=== PATIENT | male | born 1945 | race Hispanic/Latino ===

== ENCOUNTER 2016-07-11 14:11 | Inpatient (IN) | payer MEDICARE ==
[2016-07-11 15:43] LABS: BASO # 0.1 K/uL (0.0-0.2); BASO % 0.7 % (0.0-2.0); EOS # 0.5 K/uL (0.0-0.7); EOS % 6.4 % (0.0-4.0); HEMATOCRIT 37.8 % (35.0-51.0); LYMPH # 0.8 K/uL (1.0-4.3); LYMPH % 9.4 % (20.0-40.0); MEAN CELL VOLUME 85.4 fL (80.0-94.0); MEAN CORPUSCULAR HEMOGLOBIN 27.2 pg (27.0-31.0); MEAN CORPUSCULAR HGB CONC 31.9 g/dL (33.0-37.0); MEAN PLATELET VOLUME 6.3 fL (7.2-11.7); MONO # 0.7 K/uL (0.0-0.8); PLATELET COUNT 333 K/uL (130-400); RED CELL DISTRIBUTION WIDTH 15.2 % (11.5-14.5); WHITE BLOOD COUNT 8.2 K/uL (4.8-10.8)
[2016-07-11 15:53] LABS: CHLORIDE 98 mmol/L (98-107); SODIUM 137 mmol/L (132-148)
[2016-07-11 15:54] LABS: POTASSIUM 3.8 mmol/L (3.6-5.2)
[2016-07-11 15:55] LABS: GFR AFRICAN-AMERICAN > 60
[2016-07-11 15:56] LABS: ALB/GLOB RATIO 1.4 (1.0-2.1); ALKALINE PHOSPHATASE 71 U/L (38-126); ALT/SGPT 29 U/L (21-72); AST/SGOT 28 U/L (17-59); BILIRUBIN,TOTAL < 0.1 mg/dL (0.2-1.3); BLOOD UREA NITROGEN 10 mg/dL (9-20); CALCIUM 8.6 mg/dl (8.6-10.4); CARBON DIOXIDE 27 mmol/L (22-30); GLUCOSE,RANDOM 81 mg/dL (75-110); TOTAL PROTEIN 7.3 g/dL (6.3-8.3)
[2016-07-11 15:57] LABS: ALCOHOL SERUM < 10 mg/dl (0-10)
[2016-07-11 16:13] LABS: EOSINOPHIL 8 % (0-4); NEUTROPHIL 76 % (50-75); TOTAL CELLS COUNTED 100
--- NOTE | 2016-07-11 16:15 | C.PDOC ---
History Of Present Illness 71 year old patient, with a past medical history of seizures, presents to the ED requesting detox. Patient is pre-screened. He admits his last drink was at 1: 00 am. Patient states he's been feeling anxious. He denies shortness of breath, chest pain, nausea, vomiting, or dizziness. Time Seen by Provider: 07/11/16 14:57 Chief Complaint (Nursing): Substance Abuse History Per: Patient History/Exam Limitations: no limitations Onset/Duration Of Symptoms: Other Current Symptoms Are (Timing): Still Present Suicide/Self Injury Attempted (Context): None Modifying Factor(s): None Severity: None Pain Scale Rating Of: 0 Associated Symptoms: Anxiety Recent travel outside of the [place]: No Additional History Per: Patient Past Medical History Reviewed: Historical Data, Nursing Documentation, Vital Signs Vital Signs: Last Vital Signs Temp 98.3 F 07/15/16 17:04 Pulse 70 07/15/16 17:04 Resp 18 07/15/16 17:04 BP 100/63 07/15/16 17:04 Pulse Ox 100 07/15/16 17:04 - Medical History PMH: Pneumothorax, Seizures Surgical History: Pacemaker - [facility] Procedures DETOXIFICATION SERVICES FOR SUBSTANCE ABUSE TREATMENT (07/11/16) GROUP PSYCHOTHERAPY (07/11/16) INDIV PSYCHOTHERAPY FOR SUBSTANCE ABUSE TREATMENT, SUPPORT (07/11/16) INDIVIDUAL PSYCHOTHERAPY, SUPPORTIVE (07/11/16) MEDICATION MANAGEMENT (07/11/16) Family History: States: Unknown Family Hx - Social History Hx Alcohol Use: Yes Hx Substance Use: No - Immunization History Hx Tetanus Toxoid Vaccination: No Hx Influenza Vaccination: Yes Hx Pneumococcal Vaccination: Yes Review Of Systems Except As Marked, All Systems Reviewed And Found Negative. Cardiovascular: Negative for: Chest Pain Respiratory: Negative for: Shortness of Breath Gastrointestinal: Negative for: Nausea, Vomiting Neurological: Negative for: Dizziness Psych: Positive for: Anxiety Physical Exam - Physical Exam Appears: Non-toxic, No Acute Distress Skin: Warm, Dry Head: Atraumatic, Normacephalic Eye(s): bilateral: Normal Inspection, EOMI Oral Mucosa: Moist Neck: Normal ROM, Supple Chest: Symmetrical Cardiovascular: Rhythm Regular Respiratory: Normal Breath Sounds, No Rales, No Rhonchi, No Wheezing Gastrointestinal/Abdominal: Soft, No Tenderness Back: Normal Inspection, No CVA Tenderness Extremity: Normal ROM Neurological/Psych: Oriented x3, Normal Speech Gait: Steady ED Course And Treatment - Laboratory Results Result Diagrams: 07/11/16 15:39 07/11/16 15:39 Lab Interpretation: No Acute Changes O2 Sat by Pulse Oximetry: 98 (room air) Pulse Ox Interpretation: Normal Medical Decision Making Medical Decision Making: Impression: 71 y/o male is pre-screened for detox Plan: * Labs * Librium * Crisis evaluation * Reassess and disposition Progress: Labs ordered and reviewed. In my clinical judgment patient is medically cleared and stable for psychiatric admission. bake room worker contacted for evaluation. 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 - Scribe Statement The provider has reviewed the documentation as recorded by the Scribe Bianca Bishop All medical record entries made by the Scribe were at my direction and personally dictated by me. I have reviewed the chart and agree that the record accurately reflects my personal performance of the history, physical exam, medical decision making, and the department course for this patient. I have also personally directed, reviewed, and agree with the discharge instructions and disposition. Decision To Admit - Pt Status Changed To: Hospital Disposition Of: Inpatient - Admit Certification Admit to Inpatient:: After my assessment, the patient will require hospitalization for at least two midnights. This is because of the severity of symptoms shown, intensity of services needed, and/or the medical risk in this patient being treated as an outpatient. - InPatient: Physician Admission Certification: I certify that this patient requires 2 or more midnights of care for the following reason:: patient is to be admitted to detox for alcohol use disorder severe under Dr Monteiro service - . Bed Request Type: Detox Admitting Physician: Nam Monteiro Patient Diagnosis: Alcohol use disorder
[2016-07-11 16:16] LABS: LARGE PLATELETS PRESENT
[2016-07-11 16:32] LABS: RBC URINE 2 /hpf (0-3); URINE BACTERIA RARE (<OCC); URINE BILIRUBIN NEGATIVE (NEGATIVE); URINE BLOOD NEGATIVE (NEGATIVE); URINE COLOR Yellow (YELLOW); URINE GLUCOSE (UA) 1+ mg/dL (Normal); URINE KETONE NEGATIVE (NEGATIVE); URINE LEUKOCYTE ESTERASE NEG Leu/uL (Negative); URINE PROTEIN NEGATIVE (NEGATIVE); URINE UROBILINOGEN NORMAL mg/dL (0.2-1.0); WBC URINE 1 /hpf (0-5)
--- NOTE | 2016-07-12 08:51 | PCM.PSYCH ---
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 Patient reports of long history of drinking. As per the patient he started drinking in 20s with a few beers but with the passage of time he started consuming increasing amount of hard liquor. As per the patient he drinks almost 10-15 12 oz beers on a daily basis. Yesterday almost 12 years and started experiencing withdrawal symptoms so came to ED to get help in detox. Patient reports of irritable mood but denies any feelings of hopelessness or helplessness, denies any suicidal ideation or homicidal ideation. Patient reports withdrawal symptoms including headache, anxiety, shakes and abdominal pain. Patient reports irritable mood but denies any feelings of hopelessness or helplessness, denies any suicidal ideation or homicidal ideation. Denies any psychotic or manic symptoms. Denies any other substance abuse. Longest period of sobriety: 12 year from [id number]. Past medical history History of seizures, cardiomyopathy status post pacemaker Past psychiatric history Patient denies any past history of inpatient psychiatric hospitalizations, but reports history of follow-up with an unknown psychiatrist, for anxiety and depression. Patient denies any history of suicidal ideation or attempt or any history of homicidal ideation or attempt in the past. Patient denies any history of auditory or visual hallucinations or any psychotic symptoms in the past Current Medications: Active Medications Generic Name Dose Route Start Last Admin Trade Name Freq PRN Reason Stop Dose Admin Chlordiazepoxide 25 mg 07/12/16 00:00 07/12/16 06:46 Librium PO 07/15/16 23:59 25 mg Q6 JO ANN Administration Taper Chlordiazepoxide 25 mg 07/11/16 19:51 Librium PO Q4H PRN Alcohol Withdrawal Digoxin 0.125 mg 07/12/16 10:00 Lanoxin PO 1000 JO ANN Docusate Sodium 100 mg 07/12/16 10:00 Colace PO BID JO ANN Folic Acid 1 mg 07/12/16 10:00 Folic Acid PO DAILY JO ANN Lamotrigine 150 mg 07/12/16 10:00 Lamictal PO BID JO ANN Meclizine HCl 25 mg 07/11/16 19:23 Antivert PO TID PRN Dizziness Metoprolol Succinate 25 mg 07/12/16 10:00 Toprol Xl PO DAILY [facility] Multivitamins 1 tab 07/12/16 10:00 Hexavitamin PO DAILY [facility] Pantoprazole Sodium 40 mg 07/12/16 10:00 Protonix Ec Tab PO DAILY [facility] Paroxetine HCl 30 mg 07/12/16 10:00 Paxil PO DAILY [facility] Thiamine HCl 100 mg 07/12/16 10:00 Vitamin B1 Tab PO DAILY [facility] Past Psychiatric History - Past Psychiatric History Previous Treatment History: Inpatient Pertinent Medical Hx (Current Medical&Sleep Prob, Allergies): Allergies Allergy/AdvReac Type Severity Reaction Status Date / Time No Known Allergies Allergy Verified 07/11/16 14:25 Digoxin [Lanoxin] 125 mcg PO DAILY 07/11/16 Folic Acid 1 mg PO DAILY 07/11/16 Lamotrigine [Lamictal] 150 mg PO BID 07/11/16 Meclizine [Antivert] 25 mg PO Q6 PRN 07/11/16 Metoprolol Succinate [Toprol XL] 25 mg PO DAILY 07/11/16 Omeprazole 40 mg PO DAILY 07/11/16 PARoxetine [Paxil] 30 mg PO DAILY 07/11/16 Vitamin D 1 cap PO QWK 07/11/16 Review of Systems - Review of Systems All systems: reviewed and no additional remarkable complaints except - Psychiatric Psychiatric: Anxiety, Irritability. absent: Auditory Hallucinations, Suicidal Ideation, Visual Hallucinations Mental Status Examination - Personal Presentation Personal Presentation: Looks stated age - Affect Affect: Constricted, Depressed - Motor Activity Motor Activity: Calm - Reliability in Providing Information Reliability in Providing Information: Good - Speech Speech: Organized - Mood Mood: Depressed, Anxious - Formal Thought Process Formal Thought Process: No Impairment - Obsessions/Compulsions Obsessions: No Compulsions: No - Cognitive Functions Orientation: Person, Place, Situation, Time Sensorium: Alert Attention/Concentration: Attentive Abstract Thinking: [place] Estimate of Intelligence: Below average Judgement: Imparied, as evidence by: Poor judgement, Intact, as evidence by: Insight regarding need for hospitalization - Risk Risk: Withdrawal, Diminished functioning - Strength & Assets Inventory Strength & Assets Inventory: Cooperative DSM 5 DX - DSM 5 DSM 5 Diagnosis: Alcohol use disorder severe Alcohol withdrawal uncomplicated Bipolar disorder mixed moderate - Recommended/Plan of Treatment Treatment Recommendations and Plan of Treatment: Alcohol use disorder severe CBT Psychoeducation Supportive therapy, individual therapy Use [place] for abstinence Alcohol withdrawal uncomplicated CBT Psychoeducation Supportive therapy, individual therapy Librium when necessary Start Librium taper Start folic acid/thiamine/multivitamin Bipolar disorder mixed moderate CBT Psychoeducation Supportive therapy, group therapy, individual therapy Lamotrigine 150 mg by mouth twice a day Paxil 30 mg daily Trazodone 50 mg by mouth daily at bedtime H/o seizure disorder continue prescribed medications Monitor signs symptoms Cardiomyopathy status post pacemaker continue prescribed medications ( digoxin, metoprolol) Monitor signs symptoms - Smoking Cessation Smoking Cessation Initiated: No
[2016-07-12] MEDS ORDERED: Digoxin 125 mcg (0.125 mg) Tab PO SCH (10:00)
[2016-07-12] MEDS: Metoprolol Succinate 25 mg XL Tab PO SCH (10:06)
[2016-07-12] MEDS: Multiple Vitamins Tab PO SCH (10:06)
[2016-07-12] MEDS: Pantoprazole 40 mg EC Tab PO SCH (10:06)
[2016-07-12] MEDS: Digoxin 125 mcg (0.125 mg) Tab PO SCH (10:07)
[2016-07-13] MEDS: Multiple Vitamins Tab PO SCH (09:29)
[2016-07-13] MEDS: Pantoprazole 40 mg EC Tab PO SCH (09:29)
[2016-07-13] MEDS: Digoxin 125 mcg (0.125 mg) Tab PO SCH (09:30)
[2016-07-13] MEDS: Metoprolol Succinate 25 mg XL Tab PO SCH (09:30)
--- NOTE | 2016-07-13 17:52 | PCM.PYCHPN ---
Psychiatric Progress Note - Psychiatric Progress Note Patient seen today, length of contact: 20 minutes Patient Chief Complaint: "I feel anxious and jittery." Problems Identified/Issues Discussed: Patient seen and evaluated, chart reviewed and discussed with nurse. 71 yo M with a PMH seizure, vertigo, rheumatoid arthritis, BPH, reports that he is feeling better and "I feel anxious and jittery". Patient has a history of anxiety, a source of his anxiety includes worrying about when his next seizure will occur, states that medications help. Patient's medication will be changed from Paxil to Zoloft. Reports sleeping well last night, wakes up a couple times a night due to BPH, and has a good appetite. Withdrawal symptoms include shaking, cold intolerance. Denies suicidal and homicidal ideation, auditory and visual hallucinations, people out to get him. Plans after discharge include moving back to his apartment in [place], [place] where he has a support system including 3 sisters and 1 son. Patient will also attend meetings at [facility]. General impression includes a motivated attitude. Medical Problems: seizure, vertigo, rheumatoid arthritis, BPH DSM 5 Symptoms Update: Alcohol use disorder severe Alcohol withdrawal uncomplicated Bipolar disorder mixed moderate Medication Change: Yes (Discontinue Paxil. Start Zoloft.) Mental Status Examination - Cognitive Function Orientation: Person, Place, Situation, Time Attention: WNL Concentration: WNL - Mood Mood: Depressed, Anxious - Affect Affect: Constricted, Depressed - Speech Speech: Appropriate - Formal Thought Process Formal Thought Process: No Impairment - Suicidal Ideation Suicidal Ideation: No - Homicidal Ideation Homicidal Ideation: No Goal/Treatment Plan - Goal/Treatment Plan Progress Toward Problem(s) and Goals/Treatment Plan: Alcohol use disorder severe CBT Psychoeducation Supportive therapy, individual therapy Use [place] for abstinence Alcohol withdrawal uncomplicated CBT Psychoeducation Supportive therapy, individual therapy Librium when necessary Start Librium taper Continue folic acid/thiamine/multivitamin Bipolar disorder mixed moderate CBT Psychoeducation Supportive therapy, group therapy, individual therapy Lamotrigine Zoloft Trazodone H/o seizure disorder continue prescribed medications Monitor signs symptoms Cardiomyopathy status post pacemaker continue prescribed medications (digoxin, metoprolol) Monitor signs symptoms Estimated Date of D/C: 07/15/16
[2016-07-14] MEDS: Multiple Vitamins Tab PO SCH (09:28)
[2016-07-14] MEDS: Pantoprazole 40 mg EC Tab PO SCH (09:28)
[2016-07-14] MEDS: Metoprolol Succinate 25 mg XL Tab PO SCH (09:28)
[2016-07-14] MEDS: Digoxin 125 mcg (0.125 mg) Tab PO SCH (09:28)
[2016-07-14] MEDS ORDERED: Aluminum Hydroxide/Magnesium Hydroxide Susp (30 mL) PO ONE (11:58)
--- NOTE | 2016-07-14 15:39 | PCM.PYCHPN ---
Psychiatric Progress Note - Psychiatric Progress Note Patient seen today, length of contact: 20 minutes Patient Chief Complaint: "I am doing good." Problems Identified/Issues Discussed: The pt is seen, chart reviewed, case discussed with staff. The pt is compliant with medication and reports no side effects. The pt reports some anxiety but the medications help, detox is going well, slept fine. Symptoms are improving and include shaking, sweating, chills. After care discussed, support and psychoeducation given. HI and CBT used briefly. Plans to go to in [facility] and look into adult day care. Medical Problems: seizure, vertigo, rheumatoid arthritis, BPH Medication Change: No Mental Status Examination - Cognitive Function Orientation: Person, Place, Situation, Time Memory: Intact Attention: WNL Concentration: WNL - Mood Mood: Depressed, Anxious - Affect Affect: Constricted, Depressed - Speech Speech: Appropriate - Formal Thought Process Formal Thought Process: No Impairment - Suicidal Ideation Suicidal Ideation: No - Homicidal Ideation Homicidal Ideation: No Goal/Treatment Plan - Goal/Treatment Plan Need for Continued Stay: Discharge may exacerbated symptoms Progress Toward Problem(s) and Goals/Treatment Plan: Alcohol use disorder severe CBT Psychoeducation Supportive therapy, individual therapy Use [place] for abstinence Alcohol withdrawal uncomplicated CBT Psychoeducation Supportive therapy, individual therapy Librium when necessary Librium taper Continue folic acid/thiamine/multivitamin Bipolar disorder mixed moderate CBT Psychoeducation Supportive therapy, group therapy, individual therapy Lamotrigine Zoloft Trazodone H/o seizure disorder continue prescribed medications Monitor signs symptoms Cardiomyopathy status post pacemaker continue prescribed medications (digoxin, metoprolol) Monitor signs symptoms Estimated Date of D/C: 07/15/16
--- NOTE | 2016-07-15 08:55 | PCM.PYCHDC ---
Mental Status Examination - Mental Status Examination Orientation: Person, Place, Situation, Time Memory: Intact Mood: Anxious Affect: Broad Speech: Appropriate Attention: WNL Concentration: WNL Association: WNL Fund of Knowledge: WNL Formal Thought Process: No Impairment Description of patient's judgement and insight: Has insight to his alcohol disorder and is planning appropriate steps for recovering including regular meetings, support system, adhere to medications. Suicidal Ideation: No Current Homicidal Ideation?: No Discharge Summary - Discharge Note Reason for Hospitalization: Alcohol Detox Psychiatric History (includes Medical, Family, Personal Hx): seizures, cardiomyopathy status post pacemaker, vertigo Consultations:: List each consultation separately and include: 1. Reason for request. 2. Findings. 3. Follow-up Summary of Hospital Course include:: 1. Description of specific treatment plan utilized for patients during their course of treatmen. 2. Summarize the time- course for resolution of acute symptoms and/or regressed behaviors. 3. Describe issues identified and worked on during hospitalization. 4. Describe medication utilized. 5. Describe medical problems identified and treated. 6. 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 Lives alone in an apartment in [place], is single, has 1 son. Came to the ED to get help in alcohol detox. Patient reports of long history of drinking. As per the patient he started drinking in 20s with a few beers but with the passage of time he started consuming increasing amount of hard liquor. As per the patient he drinks almost 10-15 12 oz beers on a daily basis. Yesterday almost 12 years and started experiencing withdrawal symptoms so came to ED to get help in detox. Patient reports of irritable mood but denies any feelings of hopelessness or helplessness, denies any suicidal ideation or homicidal ideation. Patient reports withdrawal symptoms including headache, anxiety, shakes and abdominal pain. Patient reports irritable mood but denies any feelings of hopelessness or helplessness, denies any suicidal ideation or homicidal ideation. Denies any psychotic or manic symptoms. Denies any other substance abuse. Longest period of sobriety: 12 year from [id number]. Hospital course: Pt seen, chart reviewed, and case discussed with staff. Pt feels anxious a little, has mild shaking, and is ready for discharge. Pt will go to meetings and AA in [facility]. He will live in his apartment with a support system of 3 sisters living in the same town that will help him. Attended groups, MD, CBT used. Pt responded well to treatment. - Final Diagnosis (DSM 5) Condition upon Discharge: STABLE DSM 5: Alcohol use disorder severe Alcohol withdrawal uncomplicated Bipolar disorder mixed moderate Disposition: HOME/ ROUTINE Follow-up Treatment Plan: Continue below meds Attend Aftercare: meetings in AA Use relapse prevention skills Return to ER if experience suicidal ideation, homicidal ideation, agitation Prescriptions/Medication Reconciliation: Digoxin [Lanoxin] 0.125 mg PO DAILY #30 tab Docusate [Colace] 100 mg PO BID #60 cap Lamotrigine [Lamictal] 150 mg PO BID #60 tab Meclizine [Meclizine*] 25 mg PO TID PRN #90 tab PRN Reason: Dizziness Metoprolol Succinate [Toprol XL] 25 mg PO DAILY #30 tab Multivitamins [Hexavitamin] 1 tab PO DAILY #30 tab Pantoprazole [Protonix EC Tab] 40 mg PO DAILY #30 ect PARoxetine [Paxil] 30 mg PO DAILY #30 tab
[2016-07-15] MEDS: Digoxin 125 mcg (0.125 mg) Tab PO SCH (09:36)
[2016-07-15] MEDS: Pantoprazole 40 mg EC Tab PO SCH (09:36)
[2016-07-15] MEDS: Metoprolol Succinate 25 mg XL Tab PO SCH (09:38)
[2016-07-15] MEDS: Multiple Vitamins Tab PO SCH (09:38)
[2016-07-15 09:39] VITALS: PULSE 76
[2016-07-15 13:51] VITALS: RESP 18
[2016-07-15 17:05] VITALS: BP 100/63; PULSE 70; TEMP 98.3
[2016-07-21 18:19] VITALS: O2SAT 98
== END 2016-07-15 18:17 | disposition home or self-care (01) | DRG 895 ==
LOC: C.ER 14:11 → C.7D 17:34
PROVIDERS: ADMIT Psychiatry & Neurology Psychiatry; ATTEND Psychiatry & Neurology Psychiatry
PROC: HZ2ZZZZ Detoxification Services for Substance Abuse Treatment (ICD-10-PCS; principal; 2016-07-11)
PROC: HZ59ZZZ Individual Psychotherapy for Substance Abuse Treatment, Supportive (ICD-10-PCS; 2016-07-11)
PROC: GZ3ZZZZ Medication Management (ICD-10-PCS; 2016-07-11)
PROC: GZHZZZZ Group Psychotherapy (ICD-10-PCS; 2016-07-11)
PROC: GZ56ZZZ Individual Psychotherapy, Supportive (ICD-10-PCS; 2016-07-11)
DX: F10.230 Alcohol dependence with withdrawal, uncomplicated (principal); F31.62 Bipolar disorder, current episode mixed, moderate; I42.9 Cardiomyopathy, unspecified; G40.909 Epilepsy, unspecified, not intractable, without status epilepticus; Z95.0 Presence of cardiac pacemaker